=== PATIENT | male | born 1965 | race Caucasian/White ===

== ENCOUNTER → 2018-03-28 | Outpatient (CLI) | payer OTHER | END | disposition home or self-care (01) | LOC: RAD 14:05 | DX: M79.89 Other specified soft tissue disorders (principal); I10 Essential (primary) hypertension; E11.9 Type 2 diabetes mellitus without complications ==

== ENCOUNTER → 2018-12-21 | Outpatient (CLI) | payer OTHER ==
[~2018-12-21] MED LIST: CRESTOR20 M1 PO; HYDR25T PO; LOPID600 M1 PO; LOSARTAN-HCTZ1 EAC1 PO; METFORMIN HYDR500 MG PO; NORVASC10 MG PO; OMEPRAZOLE40 MG PO; VITAMIN D32000 UNI1 PO
[2018-12-21 11:30] LABS: BASO # 0.1 10*3/uL (0.0-0.1); BASO % 0.9 % (0.0-1.0); EOS # 0.2 10*3/uL (0.0-0.4); EOS % 2.6 % (1.0-4.0); HEMATOCRIT 37.2 % (42.0-52.0); HEMOGLOBIN 13.1 g/dl (14.0-18.0); LYMPH # 1.4 10*3/uL (1.3-4.4); LYMPH % 24.3 % (27.0-41.0); MEAN CELL VOLUME 93.9 fl (80.0-94.0); MEAN CORPUSCULAR HGB 33.1 pg (27.0-31.0); MEAN CORPUSCULAR HGB CONC 35.2 g/dl (33.0-37.0); MEAN PLATELET VOLUME 9.2 fl (9.6-12.3); MONO # 0.7 10*3/uL (0.1-1.0); MONO % 12.4 % (3.0-9.0); NEUT # 3.4 10*3/uL (2.3-7.9); NEUT % 59.3 % (47.0-73.0); PLATELET COUNT AUTOMATED 291 10*3/uL (130-400); RED BLOOD COUNT 3.96 10*6/uL (4.50-5.90); RED CELL DISTRI WIDTH 11.6 % (0-14.5); WHITE BLOOD COUNT 5.7 10*3/uL (4.8-10.8)
[2018-12-21 11:45] LABS: ALBUMIN 3.8 gm/dl (3.1-4.5); BUN 15 mg/dl (7-24); CHLORIDE 100 mmol/L (98-107); CREATININE 1.11 mg/dL (0.70-1.30); POTASSIUM 3.2 mmol/L (3.5-5.1); SODIUM 136 mmol/L (136-145)
[2018-12-21 11:54] LABS: ALKALINE PHOSPHATASE 74 U/L (45-117); SGOT/AST 42 IU/L (3-35); SGPT/ALT 55 U/L (12-78); T3 UPTAKE 42 % (31-39); TOTAL PROTEIN 7.8 gm/dL (6.4-8.2)
[2018-12-22 08:09] LABS: FOLLICLE STIMULATING HORMONE 4.2 mIU/mL (1.5-12.4); LUTEINIZING HORMONE 004283 5.3 mIU/mL (1.7-8.6); PROGESTERONE 004317 0.4 ng/mL (0.0-0.5); PROLACTIN 004465 10.2 ng/mL (4.0-15.2)
== END | disposition home or self-care (01) ==
LOC: LAB 08:51 → US 09:00
PROVIDERS: Urology
DX: I86.1 Scrotal varices (principal); N20.0 Calculus of kidney; N50.812 Left testicular pain; E11.9 Type 2 diabetes mellitus without complications

== ENCOUNTER → 2020-02-11 | Outpatient (CLI) | payer OTHER ==
[2020-02-11 08:36] LABS: ALBUMIN 3.8 gm/dl (3.1-4.5); BUN 14 mg/dl (7-24); CHLORIDE 103 mmol/L (98-107); CHOLESTEROL 128 mg/dL (<200); CREATININE 1.15 mg/dL (0.70-1.30); HDL CHOLESTEROL 81 mg/dl (40-60); LDL CHOLESTEROL 33 mg/dL (9-159); POTASSIUM 3.3 mmol/L (3.5-5.1); SGOT/AST 49 IU/L (3-35); SODIUM 139 mmol/L (136-145); TRIGLYCERIDES 72 mg/dl (<150); VLDL CHOLESTEROL 14 mg/dL (6-40)
[2020-02-11 08:38] LABS: ALKALINE PHOSPHATASE 82 U/L (45-117); SGPT/ALT 50 U/L (12-78); TOTAL PROTEIN 7.4 gm/dL (6.4-8.2)
== END | disposition home or self-care (01) ==
LOC: LAB 07:32
PROVIDERS: ATTEND Nurse Practitioner
DX: E78.5 Hyperlipidemia, unspecified (principal)

== ENCOUNTER → 2024-08-19 | Outpatient (CLI) | payer OTHER | END | disposition home or self-care (01) | LOC: RESCLI 15:11 | PROVIDERS: ATTEND Internal Medicine | DX: M54.9 Dorsalgia, unspecified (principal); I10 Essential (primary) hypertension; K21.9 Gastro-esophageal reflux disease without esophagitis; E11.9 Type 2 diabetes mellitus without complications; Z79.899 Other long term (current) drug therapy; Z98.890 Other specified postprocedural states ==